=== PATIENT | male | born 1950 | race Caucasian/White ===

== ENCOUNTER 2020-02-19 19:03 | Emergency (ER) | payer MEDICARE ==
[~2020-02-19] VITALS: Ht 175.3 cm; Wt 99.7 kg
[~2020-02-19 19:03] MED LIST: AMLO5TAB10 PO; LOSA1TAB22 PO; POTA20TA4 PO
[2020-02-19] MEDS ORDERED: GLUCAGON,HUMAN RECOMBINANT 1 MG/ML VIAL. IV ONE (19:15)
[2020-02-19 19:47] VITALS: BP 191/100
--- NOTE | 2020-02-19 19:52 | PHYS DOC ---
Past Medical History Past Medical History: Diabetes-Type II, Hypertension Additional Past Medical Histor: meningitis (PAIGE SPAIN APRN) Past Surgical History: Appendectomy, Cholecystectomy (PAIGE SPAIN APRN) Smoking Status: Unknown if ever smoked Alcohol Use: None Drug Use: None (PAIGE SPAIN APRN) General Adult EDM: Chief Complaint: SWALLOWED FORIEGN BODY HPI: HPI: Patient is a 69 year old male, accompanied by his , who presents the emergency department with complaints of being unable to swallow after eating meat. Patient states that he feels like there is meat stuck in his throat. Patient reports that he was eating ribs at about 1800 this evening when he developed the difficulty swallowing. He states he has been unable to swallow his own saliva since the food bolus developed. He denies any shortness of breath, wheezing, stridor, abdominal pain, nausea, vomiting, fever, or cough. He currently denies any pain. (PAIGE SPAIN APRN) Review of Systems: Review of Systems: Complete review of systems is negative unless otherwise documented in the HPI. (PAIGE SPAIN APRN) Heart Score: Risk Factors: Risk Factors: DM, Current or recent (<one month) smoker, HTN, HLP, family history of CAD, obesity. Risk Scores: Score 0 - 3: 2.5% MACE over next 6 weeks - Discharge Home Score 4 - 6: 20.3% MACE over next 6 weeks - Admit for Clinical Observation Score 7 - 10: 72.7% MACE over next 6 weeks - Early Invasive Strategies (PAIGE SPAIN APRN) Current Medications: Current Medications Medications (Trade) Dose Ordered Sig/[place] Start Time Stop Time Status Last Admin Dose Admin Glucagon (Glucagen) 1 mg 1X ONCE 02/19/20 19:15 02/19/20 19:16 DC 02/19/20 19:31 1 MG (PAIGE SPAIN APRN) Allergies: Allergies: Allergies Coded Allergies Type Severity Reaction Last Updated Verified Penicillins Allergy Intermediate PT REPORTS UNKNOWN ALLERGY TO PCN PER HIS MOTHER 02/19/20 Yes (PAIGE SPAIN APRN) Physical Exam: PE: Constitutional: Well developed, well nourished, no acute distress, non-toxic appearance. [] HENT: Normocephalic, atraumatic, bilateral external ears normal, nose normal. [] Eyes: PERRLA, EOMI, conjunctiva normal, no discharge. [] Neck: Normal range of motion, supple, no stridor. [] Cardiovascular: Heart rate regular rhythm Lungs & Thorax: Respirations even and unlabored, no retractions, no respiratory distress Skin: Warm, dry, no erythema, no rash. [] Extremities: No cyanosis, ROM intact, no edema. [] Neurologic: Alert and oriented X 3, no focal deficits noted. [] Psychologic: Affect normal, judgement normal, mood normal. [] (PAIGE SPAIN APRN) Current Patient Data: Vital Signs: Vital Signs Date Time Temp Pulse Resp B/P (MAP) Pulse Ox O2 Delivery O2 Flow Rate FiO2 02/19/20 19:17 98.6 60 16 192/85 (120) 99 Room Air 98.6 (PAIGE SPAIN APRN) EKG: EKG: [] (PAIGE SPAIN APRN) Radiology/Procedures: Radiology/Procedures: [] (PAIGE SPIAN APRN) Course & Med Decision Making: Course & Med Decision Making Pertinent Labs and Imaging studies reviewed. (See chart for details) Patient is a 69-year-old male who presented to the emergency department with complaints of a food bolus. He was given 1 mg of glucagon and and easy gas and reported relief of the discomfort after these medications. Patient was noted to be hypertensive in the emergency department he reported that he is noncompliant with his blood pressure medication. I encouraged the patient to take his blood pressure medication as prescribed and follow-up with his primary care doctor about his high blood pressure. Also provided information for follow-up with a otr refrigerated cdl truck driver for possible stretching of the patient's esophagus. Patient verbalized an understanding of home care, medications, follow-up, and return to ED instructions and was in agreement with the plan of care. [] (PAIGE SPAIN APRN) Dragon Disclaimer: Dragon Disclaimer: This electronic medical record was generated, in whole or in part, using a voice recognition dictation system. (PAIGE SPAIN APRN) Departure Departure Impression: Primary Impression: Esophageal obstruction due to food impaction Additional Impressions: Hypertension Qualified Codes: I10 - Essential (primary) hypertension Noncompliance with medication regimen Disposition: HOME, SELF-CARE Condition: STABLE Referrals: UNKNOWN PCP NAME (PCP) MADELIN SMYTH MD Patient Instructions: Esophageal Dilatation Additional Instructions: I recommend a soft diet until you are evaluated by a otr refrigerated cdl truck driver for possible stretching of your esophagus. I have provided Dr. Smyth's information for follow-up, return to the ER if symptoms worsen. You need to take your blood pressure medication as prescribed. Follow-up with your primary care doctor this week for recheck of your blood pressure. Justicifation of Admission Dx: Justifications for Admission: Justification of Admission Dx: N/A (PAIGE SPAIN APRN) Attending Signature Attending Signature I have participated in the care of this patient and I have reviewed and agree with all pertinent clinical information above including history, exam, and recommendations. (JESUS MORALES DO) PAIGE SPAIN APRN Feb 19, 2020 19:52 JESUS MORALES DO Feb 20, 2020 04:10
== END 2020-02-19 20:08 | disposition home or self-care (01) ==
LOC: ER 19:03
DX: K22.2 Esophageal obstruction (principal); I10 Essential (primary) hypertension; E11.9 Type 2 diabetes mellitus without complications; Z90.49 Acquired absence of other specified parts of digestive tract; Z90.89 Acquired absence of other organs; Z88.0 Allergy status to penicillin
CPT/HCPCS: 96374; 99283; J1610